=== PATIENT | male | born 1950 | race Caucasian/White ===

== ENCOUNTER → 2021-05-30 | Outpatient (CLI) | payer MEDICARE ==
[~2021-05-30] MED LIST: ALBU0.63 NEB; ATEN25TA PO; ATOR40TA78 PO; FLUT12AE2 INH; LISI-170 PO; MONT10TA17 PO
[2021-05-30 12:40] LABS: BASOPHILS % (AUTO) 1 % (0-1); EOSINOPHILS % (AUTO) 3 % (1-7); LYMPHOCYTES % (AUTO) 14 % (22-44); MEAN CORPUSCULAR HEMOGLOBIN 33.8 pg (27.5-34.5); MEAN CORPUSCULAR HGB CONC 34.5 g/dL (33.2-36.2); MEAN PLATELET VOLUME 7.9 fL (7.4-10.4); MONOCYTES % (AUTO) 11 % (2-9); NEUTROPHILS % (AUTO) 71 % (42-75); PLATELET COUNT 206 x10^3/uL (130-400); RED BLOOD COUNT 4.16 x10^6/uL (4.38-5.82); RED CELL DISTRIBUTION WIDTH 12.9 % (9.4-14.8)
[2021-05-30 12:50] LABS: ALANINE AMINOTRANSFERASE 26 U/L (12-78); ALBUMIN 3.5 g/dL (3.4-5.0); ANION GAP 5 mmol/L (5-15); CALCIUM 8.9 mg/dL (8.5-10.1); CHLORIDE 106 mmol/L (98-107); CREATININE 0.62 mg/dL (0.7-1.3)
[2021-05-30 12:52] LABS: ALKALINE PHOSPHATASE 74 U/L (45-117); BILIRUBIN,TOTAL 0.8 mg/dL (0.2-1.0); TOTAL PROTEIN 7.1 g/dL (6.4-8.2)
[2021-05-30 12:53] LABS: MICROSCOPIC NOT IND
[2021-05-30 13:01] LABS: INTERNATIONAL NORMALIZED RATIO 1.01 (0.93-1.1); PROTHROMBIN TIME 10.8 Seconds (9.6-11.5)
== END | disposition home or self-care (01) ==
LOC: STAR 11:30
PROVIDERS: ATTEND Neurological Surgery
DX: Z01.818 Encounter for other preprocedural examination (principal); Z01.811 Encounter for preprocedural respiratory examination; Z01.810 Encounter for preprocedural cardiovascular examination; M48.061 Spinal stenosis, lumbar region without neurogenic claudication; M43.19 Spondylolisthesis, multiple sites in spine; M43.16 Spondylolisthesis, lumbar region; M54.5 Low back pain; R79.1 Abnormal coagulation profile; R82.90 Unspecified abnormal findings in urine; R93.41 Abnormal radiologic findings on diagnostic imaging of renal pelvis, ureter, or bladder; I45.10 Unspecified right bundle-branch block; I21.19 ST elevation (STEMI) myocardial infarction involving other coronary artery of inferior wall; Q79.1 Other congenital malformations of diaphragm
CPT/HCPCS: 36415; 71046; 80053; 81003; 85025; 85610; 85730; 93005

== ENCOUNTER 2021-06-11 10:02 | Inpatient (IN) | payer MEDICARE ==
[~2021-06-11] VITALS: Ht 170.2 cm; Wt 80.0 kg
[~2021-06-11 10:02] MED LIST changes: +BUPIVACAINE/PF 0.5% ONE; +EPINEPHRINE 1 MG/ML, 1ML ONE; +GENTAMICIN 80 MG/2 ML ONE; +VANCOMYCIN 1,000 MG ONE
[2021-06-11] MEDS ORDERED: CHLORHEXIDINE 15 ML UDC PO ONE (10:30)
[2021-06-11] MEDS ORDERED: LACTATED RINGERS 1,000 ML IV SCH (10:30)
[2021-06-11] MEDS ORDERED: MIDAZOLAM 1 MG/ML, 2ML ONE (10:35)
[2021-06-11] MEDS ORDERED: FENTANYL PF 250 MCG/5ML ONE (10:35)
[2021-06-11] MEDS ORDERED: CHLORHEXIDINE 15 ML UDC ONE (10:37)
[2021-06-11] MEDS ORDERED: ROCURONIUM 10 MG/ML,10ML ONE (11:45)
[2021-06-11] MEDS ORDERED: PROPOFOL 10 MG/ML, 20ML ONE (11:45)
[2021-06-11] MEDS ORDERED: DEXAMETHASONE 4 MG/ML, 1ML ONE (11:45)
[2021-06-11] MEDS ORDERED: ONDANSETRON 2MG/ML, 2ML ONE (11:45)
[2021-06-11] MEDS ORDERED: SUCCINYLCHOLINE 20 MG/ML, 10ML ONE (11:45)
[2021-06-11] MEDS ORDERED: CEFAZOLIN 1,000 MG ONE (11:45)
[2021-06-11] MEDS ORDERED: BUPIVACAINE/PF 0.5% ONE (12:15)
[2021-06-11] MEDS ORDERED: BUPIVACAINE/PF-EPI 0.5% 1:200K INFIL ONE (12:27)
[2021-06-11] MEDS ORDERED: VANCOMYCIN 1,000 MG IM ONE (12:29)
[2021-06-11] MEDS ORDERED: hydrALAzine 20 MG/ML, 1ML IV PRN (15:00)
[2021-06-11] MEDS ORDERED: ALBUTEROL SULFATE 2.5 MG/3 ML NPPB PRN (15:00)
[2021-06-11] MEDS ORDERED: HYDROmorphone 1 MG/ML, 1ML INJ IV PRN (15:00)
[2021-06-11] MEDS ORDERED: METOCLOPRAMIDE 5 MG/ML, 2ML IV PRN (15:00)
[2021-06-11] MEDS ORDERED: LABETALOL 5MG/ML, 20ML IV PRN ×2 (15:00→18:00)
[2021-06-11] MEDS ORDERED: KETOROLAC 30 MG/1 ML IV PRN (15:00)
[2021-06-11] MEDS ORDERED: DIAZEPAM 5 MG/ML, 2ML IV PRN ×2 (15:00)
[2021-06-11] MEDS ORDERED: OXYcodone 5 MG/5 ML ORAL.SOL UDC PO PRN (15:00)
[2021-06-11] MEDS ORDERED: PROMETHAZINE 25 MG/ML, 1ML IV PRN (15:00)
[2021-06-11] MEDS ORDERED: ONDANSETRON 2MG/ML, 2ML IVPush PRN (15:00)
[2021-06-11] MEDS ORDERED: MEPERIDINE/PF 25MG/0.5ML IVPush PRN (15:00)
[2021-06-11] MEDS ORDERED: OXYcodone 5 MG/5 ML ORAL.SOL UDC ONE (15:05)
[2021-06-11] MEDS ORDERED: FENTANYL PF 100 MCG/2ML ONE (15:06)
[2021-06-11] MEDS ORDERED: HYDROmorphone 2 MG/ML, 1ML ONE (15:06)
[2021-06-11] MEDS: FENTANYL PF 100 MCG/2ML IV PRN ×2 (15:07→15:15)
[2021-06-11] MEDS ORDERED: DIAZEPAM 5 MG/ML, 2ML ONE (15:31)
[2021-06-11] MEDS ORDERED: HYDROmorphone 2 MG/ML, 1ML IVPush PRN (17:30)
[2021-06-11] MEDS ORDERED: OXYcodone IR 5MG TABLET PO PRN (17:30)
[2021-06-11] MEDS ORDERED: DIPHENHYDRAMINE 25 MG CAPSULE PO PRN (17:30)
[2021-06-11] MEDS ORDERED: PROMETHAZINE 25 MG/ML, 1ML IM PRN (18:00)
[2021-06-11] MEDS ORDERED: BISACODYL 10 MG SUPP PR PRN (18:00)
[2021-06-11] MEDS ORDERED: MAGNESIUM HYDROXIDE 8%, 30ML UDC PO PRN (18:00)
[2021-06-11] MEDS ORDERED: ONDANSETRON 2MG/ML, 2ML IV PRN (18:00)
[2021-06-11] MEDS ORDERED: SUGAMMADEX 200 MG/2 ML IVPush ONE (19:25)
[2021-06-11 19:42] VITALS: BP 105/68
[2021-06-11] MEDS: CEFAZOLIN PMX 1GM/50ML 50 ML IVPB SCH (19:56)
[2021-06-11] MEDS: D5%-0.9% NACL+KCL 20MEQ 1,000 ML IV SCH (19:56)
[2021-06-11] MEDS: HYDROcodone/APAP 10/325 MG TABLET PO PRN (20:10)
[2021-06-12 00:46] VITALS: BP 115/75
[2021-06-12] MEDS: ENOXAPARIN 40 MG/0.4 ML SQ SCH (00:57)
[2021-06-12] MEDS: HYDROcodone/APAP 10/325 MG TABLET PO PRN ×5 (02:20→23:35)
[2021-06-12 03:38] VITALS: BP 111/74
[2021-06-12] MEDS: CEFAZOLIN PMX 1GM/50ML 50 ML IVPB SCH ×3 (03:55→20:17)
[2021-06-12 05:36] LABS: BASOPHILS % (AUTO) 0 % (0-1); EOSINOPHILS % (AUTO) 1 % (1-7); LYMPHOCYTES % (AUTO) 9 % (22-44); MEAN CORPUSCULAR HEMOGLOBIN 34.4 pg (27.5-34.5); MEAN CORPUSCULAR HGB CONC 34.2 g/dL (33.2-36.2); MEAN PLATELET VOLUME 8.5 fL (7.4-10.4); MONOCYTES % (AUTO) 14 % (2-9); NEUTROPHILS % (AUTO) 77 % (42-75); PLATELET COUNT 178 x10^3/uL (130-400); RED BLOOD COUNT 3.64 x10^6/uL (4.38-5.82); RED CELL DISTRIBUTION WIDTH 13.7 % (9.4-14.8)
[2021-06-12 05:45] LABS: ANION GAP 6 mmol/L (5-15); CALCIUM 8.1 mg/dL (8.5-10.1); CHLORIDE 103 mmol/L (98-107); CREATININE 0.65 mg/dL (0.7-1.3)
[2021-06-12] MEDS: D5%-0.9% NACL+KCL 20MEQ 1,000 ML IV SCH ×2 (06:00→16:00)
[2021-06-12 07:20] VITALS: BP 147/85
[2021-06-12] MEDS: SENNA/DOCUSATE TABLET PO SCH (10:59)
[2021-06-12] MEDS: METHOCARBAMOL 750 MG TABLET PO PRN ×2 (11:00→19:18)
[2021-06-12 15:16] VITALS: BP 112/78
[2021-06-12 15:34] VITALS: BP 137/67
[2021-06-12 20:35] VITALS: BP 110/66
[2021-06-13 00:29] VITALS: BP 151/83
[2021-06-13] MEDS: D5%-0.9% NACL+KCL 20MEQ 1,000 ML IV SCH ×3 (02:00→22:00)
[2021-06-13] MEDS ORDERED: ATENOLOL MC SCH (02:30)
[2021-06-13] MEDS ORDERED: ALBUTEROL SULFATE 2.5 MG/3 ML NPPB PRN (02:30)
[2021-06-13] MEDS: METHOCARBAMOL 750 MG TABLET PO PRN ×3 (04:13→18:18)
[2021-06-13] MEDS: HYDROcodone/APAP 10/325 MG TABLET PO PRN ×5 (04:14→21:35)
[2021-06-13] MEDS: CEFAZOLIN PMX 1GM/50ML 50 ML IVPB SCH ×3 (04:20→21:36)
[2021-06-13 04:22] VITALS: BP 124/55
[2021-06-13 05:47] LABS: MEAN CORPUSCULAR HEMOGLOBIN 34.5 pg (27.5-34.5); MEAN CORPUSCULAR HGB CONC 35.2 g/dL (33.2-36.2); MEAN PLATELET VOLUME 8.3 fL (7.4-10.4); PLATELET COUNT 147 x10^3/uL (130-400); RED BLOOD COUNT 3.19 x10^6/uL (4.38-5.82); RED CELL DISTRIBUTION WIDTH 13.1 % (9.4-14.8)
[2021-06-13 06:06] LABS: ANION GAP 6 mmol/L (5-15); CALCIUM 8.2 mg/dL (8.5-10.1); CHLORIDE 104 mmol/L (98-107); CREATININE 0.52 mg/dL (0.7-1.3)
[2021-06-13 06:32] LABS: BAND#(MANUAL) 0.33 x10^3/uL; BANDS%(MANUAL) 3 % (0-7); EOS#(MANUAL) 0.22 x10^3/uL (0.0-0.4); EOS% (MANUAL) 2 % (1-7)
[2021-06-13 06:35] LABS: LYMPH#(MANUAL) 0.89 x10^3/uL (1-3.4); LYMPHS% (MANUAL) 8 % (22-44); MONOS#(MANUAL) 1.33 x10^3/uL (0.3-2.7); MONOS% (MANUAL) 12 % (2-9)
[2021-06-13 06:36] LABS: SEG#(MANUAL) 8.33 x10^3/uL (1.8-6.8); SEGS% (MANUAL) 75 % (42-75)
[2021-06-13 06:37] LABS: <PLATELET ESTIMATE> ADEQUATE; <PLT MORPHOLOGY> NORMAL PLT MORPH; <RBC MORPHOLOGY> NORMAL
[2021-06-13 07:16] VITALS: BP 132/81
[2021-06-13] MEDS: LISINOPRIL 20 MG TABLET PO SCH (08:26)
[2021-06-13] MEDS: ENOXAPARIN 40 MG/0.4 ML SQ SCH (08:26)
[2021-06-13] MEDS: SENNA/DOCUSATE TABLET PO SCH (08:26)
[2021-06-13] MEDS: BUDESONIDE 0.5 MG/2 ML INHA NPPB SCH ×2 (11:50→19:25)
[2021-06-13 14:16] VITALS: BP 104/67
[2021-06-13 19:22] VITALS: BP 113/52
[2021-06-13] MEDS ORDERED: ATENOLOL 50 MG TABLET PO SCH (21:00)
[2021-06-13] MEDS ORDERED: ATORVASTATIN 40 MG TABLET PO SCH (21:00)
[2021-06-13] MEDS ORDERED: MONTELUKAST 10 MG TABLET PO SCH (21:00)
[2021-06-13 21:36] VITALS: BP 108/62
[2021-06-14 00:55] VITALS: BP 118/61
[2021-06-14] MEDS: CEFAZOLIN PMX 1GM/50ML 50 ML IVPB SCH ×2 (05:20→13:08)
[2021-06-14 05:48] LABS: MEAN CORPUSCULAR HEMOGLOBIN 34.3 pg (27.5-34.5); MEAN CORPUSCULAR HGB CONC 34.9 g/dL (33.2-36.2); MEAN PLATELET VOLUME 8.7 fL (7.4-10.4); PLATELET COUNT 160 x10^3/uL (130-400); RED BLOOD COUNT 3.02 x10^6/uL (4.38-5.82); RED CELL DISTRIBUTION WIDTH 13.2 % (9.4-14.8)
[2021-06-14 05:59] LABS: ANION GAP 7 mmol/L (5-15); CALCIUM 8.2 mg/dL (8.5-10.1); CHLORIDE 99 mmol/L (98-107); CREATININE 0.48 mg/dL (0.7-1.3)
[2021-06-14] MEDS: METHOCARBAMOL 750 MG TABLET PO PRN (06:39)
[2021-06-14] MEDS: BUDESONIDE 0.5 MG/2 ML INHA NPPB SCH (06:43)
[2021-06-14 06:48] LABS: EOS#(MANUAL) 0.22 x10^3/uL (0.0-0.4); EOS% (MANUAL) 2 % (1-7); LYMPH#(MANUAL) 0.99 x10^3/uL (1-3.4); LYMPHS% (MANUAL) 9 % (22-44); METAMYELOCYTES# (MANUAL) 0.22 x10^3/uL (0-0); METAMYELOCYTES% (MANUAL) 2 % (0-1); MONOS#(MANUAL) 0.88 x10^3/uL (0.3-2.7); MONOS% (MANUAL) 8 % (2-9); SEG#(MANUAL) 8.69 x10^3/uL (1.8-6.8); SEGS% (MANUAL) 79 % (42-75)
[2021-06-14 06:50] LABS: <PLATELET ESTIMATE> ADEQUATE; <PLT MORPHOLOGY> NORMAL PLT MORPH; <RBC MORPHOLOGY> NORMAL
[2021-06-14] MEDS: D5%-0.9% NACL+KCL 20MEQ 1,000 ML IV SCH (07:35)
[2021-06-14] MEDS: HYDROcodone/APAP 10/325 MG TABLET PO PRN ×2 (07:35→14:22)
[2021-06-14] MEDS: SENNA/DOCUSATE TABLET PO SCH (08:27)
[2021-06-14] MEDS: LISINOPRIL 20 MG TABLET PO SCH (08:27)
[2021-06-14] MEDS: ENOXAPARIN 40 MG/0.4 ML SQ SCH (08:27)
[2021-06-14 09:08] VITALS: BP 109/59
[2021-06-14] MEDS ORDERED: HYDR1TAB53 PO (12:20)
[2021-06-14] MEDS ORDERED: METH-640 PO (12:20)
[2021-06-14 13:30] VITALS: BP 102/65
== END 2021-06-14 14:50 | disposition home health service (06) | DRG 460 ==
LOC: OUT 10:02 → 4NE 16:15 → OUT 16:27 → 4NE 16:27
PROVIDERS: ADMIT Neurological Surgery; ATTEND Neurological Surgery
PROC: 01NB0ZZ Release Lumbar Nerve, Open Approach (ICD-10-PCS; 2021-06-11)
PROC: 01NR0ZZ Release Sacral Nerve, Open Approach (ICD-10-PCS; 2021-06-11)
PROC: 4A11X4G Monitoring of Peripheral Nervous Electrical Activity, Intraoperative, External Approach (ICD-10-PCS; 2021-06-11)
PROC: 8E0W0CZ Robotic Assisted Procedure of Trunk Region, Open Approach (ICD-10-PCS; 2021-06-11)
PROC: 0SG1071 Fusion of 2 or more Lumbar Vertebral Joints with Autologous Tissue Substitute, Posterior Approach, Posterior Column, Open Approach (ICD-10-PCS; principal; 2021-06-11 12:00)
DX: M48.062 Spinal stenosis, lumbar region with neurogenic claudication (principal); J44.9 Chronic obstructive pulmonary disease, unspecified; M51.17 Intervertebral disc disorders with radiculopathy, lumbosacral region
CPT/HCPCS: 36415; 72100; 80048; 85025; 86850; 86900; 94640; C1713; G0378; J0171; J0690; J1100; J1170; J1650; J2250; J2405; J2704; J3010; J3360; J3370; J7613; J7626; J0330; J1580; J3480; J7120